=== PATIENT | female | born 1965 | race Caucasian/White ===

== ENCOUNTER 2023-04-18 09:48 | Outpatient (CLI) | payer OTHER | END 2023-04-18 10:05 | disposition home or self-care (01) | LOC: RAD 09:48 | PROVIDERS: ATTEND General Practice | DX: M17.0 Bilateral primary osteoarthritis of knee (principal) ==

== ENCOUNTER 2023-04-26 09:00 | Inpatient (IN) | payer OTHER ==
[~2023-04-26] VITALS: Ht 157.5 cm; Wt 104.3 kg
[2023-04-26] MEDS ORDERED: NORVASC10 MG PO (11:02)
[2023-04-26] MEDS ORDERED: COZAAR100 MG PO (11:02)
[2023-04-26] MEDS ORDERED: HYDROCHLOROTHIA25 MG PO (11:02)
[2023-04-26] MEDS ORDERED: NAPRELAN500 M1 PO (11:03)
[2023-04-26] MEDS ORDERED: PEPCID AC20 MG PO (11:03)
== END 2023-05-02 12:08 | disposition home or self-care (01) | DRG 583 ==
LOC: SURG 04-30 04:29 → O/R 04-30 04:29 → SURG 04-30 07:00
PROVIDERS: ADMIT Specialist; ATTEND Specialist
PROC: 07T60ZZ Resection of Left Axillary Lymphatic, Open Approach (ICD-10-PCS; 2023-04-30)
PROC: 0HBU0ZX Excision of Left Breast, Open Approach, Diagnostic (ICD-10-PCS; 2023-04-30)
PROC: 0HTU0ZZ Resection of Left Breast, Open Approach (ICD-10-PCS; principal; 2023-04-30 07:00)
DX: C50.212 Malignant neoplasm of upper-inner quadrant of left female breast (principal)

== ENCOUNTER 2023-05-16 08:21 | Inpatient (IN) | payer OTHER ==
[~2023-05-16] VITALS: Ht 157.5 cm; Wt 104.3 kg
[~2023-05-16 08:21] MED LIST: COZAAR100 MG PO; HYDROCHLOROTHIA25 MG PO; NAPRELAN500 M1 PO; NORVASC10 MG PO; PEPCID AC20 MG PO
--- NOTE | 2023-05-16 08:35 | NUR ---
SE RECIBE FEMINA DE 57 ANOS ALERTA Y ORIENTADA X3 REFIERE VENIR CON REFERIDO MEDICO POR EL DR BONI RAMIREZ YA QUE LA MISMA INDICA QUE LA VAN A ADMITIR, PACIENTE VERBALIZA QUE LE HARAN UN DRENAJE Y REFIERE DOLOR EN EL SENO MARISA.
--- NOTE | 2023-05-16 09:41 | NUR ---
SE ORIENTA PTE SOBRE EL TRATAMIENTO DEL DR PLATA ADMISION DIRECTA, PTE ALERTA Y ORIENTADA POR 3 EN COMAPANIA DE SHIELDS FAMILIRA SE REALIZAN MUESTRAS DE LABORATORIO Y SE ADMINISTRAN MEDICAMETOS EARL ORDNEADO, SE RELIZA EKG Y SE BHARAT MEDIDAS DE LAS MEDICAS NEUMATICAS Y ANTIABOLICAS, PTE SE MANTIENE EN OBSERVACION Y BAJO TRATAMIENTO.
== END 2023-05-19 10:53 | disposition home or self-care (01) | DRG 921 ==
LOC: ER 08:21 → O/R 09:50 → SEC-K 09:50 → SURG 09:50 → O/R 14:06 → SURG 19:19
PROVIDERS: Emergency Medicine; ADMIT Specialist; ATTEND Specialist
PROC: 0W980ZZ Drainage of Chest Wall, Open Approach (ICD-10-PCS; principal; 2023-05-16 16:00)
DX: L76.32 Postprocedural hematoma of skin and subcutaneous tissue following other procedure (principal); C50.212 Malignant neoplasm of upper-inner quadrant of left female breast; I10 Essential (primary) hypertension; D50.0 Iron deficiency anemia secondary to blood loss (chronic)

== ENCOUNTER 2023-07-10 08:36 | Outpatient (CLI) | payer OTHER | END 2023-07-10 08:40 | disposition home or self-care (01) | LOC: NUCLEAR 08:36 | PROVIDERS: ATTEND Internal Medicine Hematology & Oncology | DX: C50.412 Malignant neoplasm of upper-outer quadrant of left female breast (principal); Z17.0 Estrogen receptor positive status [ER+] ==

== ENCOUNTER 2023-10-15 05:22 | Day surgery (SDC) | payer OTHER ==
[2023-10-11 11:45] LABS: HEMATOCRIT 37.2 % (36.0-45.00); HEMOGLOBIN 12.3 g/dL (12.0-15.00); MEAN CORPUSCULAR HEMOGLOBIN 25.7 pg (27.00-32.0); PLATELET COUNT 337 K/uL (150-450); RED BLOOD COUNT 4.77 M/uL (4.00-6.00); RED CELL DISTRIBUTION WIDTH 17.4 % (11.5-14.5)
[2023-10-11 11:51] LABS: URINE APPEARANCE Clear; URINE BILIRRUBIN Negative (NEGATIVE); URINE BLOOD Negative; URINE COLOR Yellow; URINE GLUCOSE Negative (NEGATIVE); URINE LEUKOCYTE Trace; URINE NITRATE Negative; URINE PROTEIN Negative (NEGATIVE)
[2023-10-11 11:56] LABS: URINE EPITHELIAL CELLS 15.7 uL (0.0-38.8); URINE WBC 10.4 uL (0.0-23.2)
[2023-10-11 12:06] LABS: INR 0.94; PARTIAL THROMBOPLASTIN TIME 25.9 SECONDS (22.0-34.0); PROTHROMBIN TIME 9.9 SECONDS (9.0-11.5)
[2023-10-11 12:31] LABS: ALBUMIN 3.7 gm/dL (3.4-5.0); BILIRUBIN TOTAL 0.89 mg/dL (0.3-1.2); CALCIUM 9.5 mg/dL (8.5-10.1); CREATININE SERUM 0.91 mg/dL (0.55-1.02); GFR 64.18; GLOBULINA 4.2 G/DL (2.4-3.5); POTASSIUM 3.94 mEq/L (3.5-5.1); TOTAL PROTEIN 7.9 gm/dL (6.4-8.2)
[2023-10-11 12:42] LABS: URINE RBC 0.8 uL (0.0-20.8)
[~2023-10-15 05:22] MED LIST changes: +FAMOTIDINE 40 MG; +NORVASC10 MG; +ZOFRAN8 MG
== END 2023-10-15 12:40 | disposition home or self-care (01) ==
LOC: CIR.AMB 05:22
PROVIDERS: ATTEND Specialist
DX: C50.012 Malignant neoplasm of nipple and areola, left female breast (principal); I10 Essential (primary) hypertension; Z20.822 Contact with and (suspected) exposure to COVID-19

== ENCOUNTER 2024-09-11 09:13 | Outpatient (CLI) | payer OTHER | END 2024-09-11 09:14 | disposition home or self-care (01) | LOC: NUCLEAR 09:13 | DX: Z85.3 Personal history of malignant neoplasm of breast (principal); M81.0 Age-related osteoporosis without current pathological fracture ==